=== PATIENT | female | born 1995 | race American Indian/Alaskan Native ===

== ENCOUNTER 2025-01-02 19:03 | Emergency (ER) | payer SELFPAY ==
--- NOTE | 2025-01-02 19:11 | ED_ITS ---
HPI - General Adult General Chief complaint: Skin/Abscess/Foreign Body Stated complaint: allergy break out all over Time Seen by Provider: 01/02/25 19:15 Source: patient, RN notes reviewed and old records reviewed Mode of arrival: ambulatory Limitations: no limitations History of Present Illness HPI narrative: 29-year-old female presents to the [facility] with a generalized rash all over. Has a sensitivity to fragrance. States that she just moved in with a family member 3 weeks ago. Rash started 2 weeks ago. Has been applying creams with no relief. Related Data Allergies Allergy/AdvReac Type Severity Reaction Status Date / Time Penicillins Allergy Unknown Unknown Verified 01/02/25 19:17 Review of Systems Review of Systems: All systems reviewed & are unremarkable except as noted in HPI and below Constitutional: Constitutional: Reports no additional constitutional complaints ENT: Reports system reviewed and no additional complaints, except as documented Cardiovascular: Cardiovascular: Reports no additional cardiovascular complaints, Denies chest pain and Denies dyspnea Respiratory: Respiratory: Reports no additional respiratory complaints, Denies chest congestion, Denies cough and Denies dyspnea Musculoskeletal: Musculoskeletal: Reports no additional musculoskeletal complaints Integumentary/Breasts: Skin/Breast: Reports as per HPI and Reports rash PMFSH Comments At the time of my signature, I reviewed and agree with the nursing past medical, surgical, social, and family history. There is no relevant family history pertinent to the patient complaint. Exam Const: General: cooperative, healthy appearing, comfortable, no acute distress, well developed, alert and well nourished Nutritional Appearance: well nourished and obese Orientation/consciousness: patient oriented x3 Limitations: no limitations HENMT: Head: normal to inspection Ears: hearing grossly normal bilaterally, external ears normal, TM's normal bilaterally and EAC's normal Mouth: Yes Normal oral and palatal mucosa present, Yes lip normal, Yes tongue normal and Yes moist mucous membranes abnormal Throat: posterior oropharynx normal, uvula midline and no uvular edema Eyes: General: appearance normal, both eyes and all related structures Alignment and Position: alignment normal Neck: Neck: normal visual inspection, full ROM, no lymphadenopathy and no meningeal signs Chest: Chest palpation & inspection: normal inspection of the chest Resp: Effort & Inspection: normal respiratory effort and able to speak in complete sentences Auscultation: clear to auscultation bilaterally, no crackles, no rales, no rhonchi and no wheezes Cardio: Rate: regular rate Skin: General skin exam: normal color and no rashes or lesions noted Rashes: rashes noted ( Generalized. Flat, pink) Neuro: General: patient oriented x3, gait normal, moves all extremities and no meningeal signs Cognition (Neuro): normal cognition Speech: normal speech Gait exam (Neuro): Normal gait present Extrem: General: normal to inspection, full ROM, capillary refill normal and normal gait Psych: Appearance: grossly normal and well kempt Mental Status: mental status grossly normal Speech and movement: Normal speech and movement present and Clear speech present Affect: normal affect Attitude: cooperative Course Course Level of Care: Express Care Visit Vital Signs Vital signs: Vital Signs Temperature 98.7 F 01/02/25 19:17 Pulse Rate 68 01/02/25 19:17 Respiratory Rate 20 01/02/25 19:17 Blood Pressure 123/85 01/02/25 19:17 Pulse Oximetry 100 01/02/25 19:17 Oxygen Delivery Room Air 01/02/25 19:17 Temperature 98.7 F 01/02/25 19:17 Pulse Rate 68 01/02/25 19:17 Respiratory Rate 20 01/02/25 19:17 Blood Pressure 123/85 01/02/25 19:17 Pulse Oximetry 100 01/02/25 19:17 Oxygen Delivery Room Air 01/02/25 19:17 Reviewed Medical Decision Making MDM Narrative Medical decision making narrative: Patient sitting comfortably in exam room. Nontoxic, vitals stable. Patient in no acute distress patient presents for a generalized rash for 2 weeks. Patient is appropriate for outpatient treatment with close follow-up Discharge instructions reviewed with patient, as well as provided in writing per nursing staff. The instructions also include specific and strict return/GO TO THE ER as well as f/u information. All questions have been answered, and the patient deny any further questions with discharge and discharge plan. Some parts of this dictation were generated by voice recognition software and may contain typographical and/or grammatical inaccuracies. Differential Diagnosis Differential Diagnosis: allergic reaction, rash, contact dermatitis Medical Records Medical records reviewed: Yes I reviewed the external patient's medical records. Vital Signs Vital Signs: Vital Signs Temperature 98.7 F 01/02/25 19:17 Pulse Rate 68 01/02/25 19:17 Respiratory Rate 20 01/02/25 19:17 Blood Pressure 123/85 01/02/25 19:17 Pulse Oximetry 100 01/02/25 19:17 Oxygen Delivery Room Air 01/02/25 19:17 Temperature 98.7 F 01/02/25 19:17 Pulse Rate 68 01/02/25 19:17 Respiratory Rate 20 01/02/25 19:17 Blood Pressure 123/85 01/02/25 19:17 Pulse Oximetry 100 01/02/25 19:17 Oxygen Delivery Room Air 01/02/25 19:17 Reviewed Lab Data Lab results reviewed: Yes I reviewed the patient's lab results. Labs: Reviewed Critical Care Time Critical Care Time Critical Care Time: No Discharge Plan Discharge Clinical Impression: Urticaria Patient Disposition: Home Condition: Stable Instructions: Antibiotic Form, Urticaria (ED) Additional Instructions: The most important part of your care is follow up with Primary care provider. Take Benadryl 25-50 mg every 8 hours for itching Take Zyrtec every day Take Pepcid 20mg daily for 7 days Take the steroids as prescribed Avoid hot showers, Take cool showers. Hot showers will make rashes worse Apply cool compresses every 2-3 hours for 15 minutes using a good moisturizing lotion such as Eucerin, Aveeno Go to the ER for new or worsening symptoms such as shortness of breath. Patient Language: Guyanese Prescriptions: New prednisone 20 mg tablet See Rx Instructions .Route .COMPLEX Qty: 18 0RF Rx Instructions: Take 60 mg daily for 3 days, 40 mg daily for 3 days, 20 mg daily for 3 days Follow-up/Referrals: PHYSICIAN,ELECTRIC BLANKET WIRER [Primary Care Provider, Internal Medicine] Stand Alone Forms: Work/School Release IP Time of Disposition: 19:22
[2025-01-02 19:17] VITALS: BP 123/85; PULSE 68; RESP 20; TEMP 37.1; O2SAT 100
== END 2025-01-02 19:27 | disposition home or self-care (01) ==
PROVIDERS: Emergency Provider Nurse Practitioner
DX: L50.9 Urticaria, unspecified (principal)
CPT/HCPCS: 99203; G0463

== ENCOUNTER 2025-01-28 19:47 | Emergency (ER) | payer SELFPAY ==
[2025-01-28 19:54] VITALS: BP 137/75; PULSE 73; RESP 18; TEMP 36.8; O2SAT 98
[2025-01-28 20:26] LABS: EDCOVIDSCREEN Negative (Negative); EDINFLUASCREEN Negative (Negative); EDINFLUBSCREEN Negative (Negative); EDSTREPNEGPOS1 Negative (Negative)
--- NOTE | 2025-01-28 20:26 | ED.URI ---
HPI - URI/Sore Throat General Chief Complaint: Upper Respiratory Infection Stated Complaint: throat/sinus pressure/blister on right ankle Time Seen by Provider: 01/28/25 19:55 Source: patient and RN notes reviewed Mode of arrival: ambulatory Limitations: no limitations History of Present Illness HPI Narrative: 29 Year old female patient presents to the [facility] complaining of upper respiratory symptoms for 4 days. Patient also reports having a blister on the back of her right heel from her work boot. Patient reports sinus pressure, sore throat,, cough, congestion. Patient denies any fevers, body aches chills, nausea vomiting, diarrhea, chest pain, difficulty breathing, any other upper respiratory symptoms, or any other symptoms. Patient reports her blisters painful denies any redness, swelling, or drainage. Patient has not tried anything to help with the blister. Patient denies any significant past medical history. Related Data Home Medications ?Medication ?Instructions ?Recorded ?Confirmed ?Last Taken ?Type No Home Medications 01/28/25 01/28/25 Unknown History Allergies Allergy/AdvReac Type Severity Reaction Status Date / Time Penicillins Allergy Unknown Unknown Verified 01/28/25 19:49 Review of Systems Review of Systems: CONSTITUTIONAL: Denies fever, chills, or sweats. EYES: Denies visual changes, redness, or discharge. ENT: Denies rhinorrhea, sore throat, or otalgia. Positive for congestion, sore throat, sinus pressure CARDIOVASCULAR: Denies chest pain, palpitations, or edema. RESPIRATORY: Positive for cough. Negative for wheezing or Dyspnea. GASTROINTESTINAL: Denies abdominal pain, nausea, vomiting, or diarrhea. GENITOURINARY: Denies dysuria or hematuria. SKIN: Denies rash or itching. Positive for wound. MUSCULOSKELETAL: Denies back pain, joint pain, or myalgia. NEUROLOGIC: Denies headache, numbness, or weakness. PSYCHIATRIC: Denies anxiety or depression. All other systems reviewed are negative, except as documented in HPI. PMFSH Comments At the time of my signature, I reviewed and agree with the nursing past medical, surgical, social, and family history. There is no relevant family history pertinent to the patient complaint. Exam Narrative: GENERAL: This is a well-nourished, well-developed adult, in no apparent distress. They are non ill-appearing, nontoxic appearing. HEAD: normocephalic, atraumatic. EYES: Sclera clear/white. Conjunctiva normal. Vision is grossly intact. Extraocular movements intact EARS: External ears normal, auditory canals clear and without drainage, TMs normal without perforation. Hearing grossly intact. NOSE: External nose normal with no obvious nasal discharge, nasal turbinates erythematous, no rhinorrhea. THROAT: Mucous membranes moist, posterior pharynx erythematous. No exudate. Uvula midline. Postnasal drip present. NECK: Neck supple, non-tender without lymphadenopathy, masses or thyromegaly. CARDIOVASCULAR: Regular rate and rhythm without murmurs, gallops, or rubs. RESPIRATORY: Clear to auscultation. Breath sounds equal bilaterally. No wheezes, rales, or rhonchi. SKIN: Right foot: Small blister to the back of the patient's right heel below the Achilles. It is measuring approximately less than 1 cm in diameter. Blister intact. No surrounding erythema, swelling, or drainage. Very fluctuance, no induration. NEURO: awake, alert, and oriented to person, place and time. There were no obvious focal neurologic abnormalities. EXTREMITIES: No joint tenderness, effusion, or edema noted. BACK: Nontender without deformity. Course Course Level of Care: Express Care Visit Vital Signs Vital signs: Vital Signs Temperature 98.2 F 01/28/25 19:54 Pulse Rate 73 01/28/25 19:54 Respiratory Rate 18 01/28/25 19:54 Blood Pressure 137/75 01/28/25 19:54 Pulse Oximetry 98 01/28/25 19:54 Oxygen Delivery Room Air 01/28/25 19:54 Temperature 98.2 F 01/28/25 19:54 Pulse Rate 73 01/28/25 19:54 Respiratory Rate 18 01/28/25 19:54 Blood Pressure 137/75 01/28/25 19:54 Pulse Oximetry 98 01/28/25 19:54 Oxygen Delivery Room Air 01/28/25 19:54 [facility] Narrative Medical decision making narrative: Rapid COVID, flu, strep were negative. A throat culture is pending. Symptoms likely viral in etiology. Patient has very mild blister to the back heel of right foot. Blister intact. No evidence of infection to the blister. Patient is not trying to help with the blister. Advised patient to wear a barrier such as a Band-Aid her extra padding to help with the blister. Discussed supportive care. Patient is nontoxic appearing, no apparent distress, vital signs hemodynamically stable. Patient is afebrile. Patient resting comfortably in the room. Discussed physical exam findings. Advised supportive measures and signs/symptoms to go to the ER. Pt is appropriate for outpt treatment and f/u. Patient says she is on a unable to work due to her blister, she reports due to the pain. She has not tried anything to help with the blister. Emphasized importance of a barrier to the blister and good fitting shoes or she may need to consider changing shoes for work. Patient is demanding a work note for at least 6 days for the blister. Patient is in form she can have 1 day off of work for the blister as it is not medically necessary to be a for 6 days for her blister or not able to fulfill the request. Patient continued to argue with provider in the room about the work note continue to demand 6 days off work. Provider sternly emphasized to the patient the request is denied and she can have 1 day of work, the conversation was ended this point by provider as the conversation was futile and at a standstill. As provider is leaving the room the patient followed aggressively to the nurse's station and began recording with her cellphone at nurses station pain belligerent, intimidating, and aggressive about her denial and about her care, demanding to speak to superior. Nursing staff requesting patient return to room, or to leave the property due to her behavior as she has already been evaluated and can leave with or without her discharge instructions. Patient returned to room a and awaited discharge instructions from nursing staff. Differential Diagnosis Differential Diagnosis: Upper respiratory infection, viral illness, sinusitis, pharyngitis, blister, cellulitis Lab Data [facility] Lab Attestation statement: I personally reviewed the patient's lab results. Labs: Lab Results 01/28/25 Range/Units 20:24 POC Influenza A Ag Negative (Negative) POC Influenza B Ag Negative (Negative) POC SARS CoV-2 Ag Negative (Negative) POC Grp A Strep Screen Negative (Negative) Critical Care Time Critical Care Time Critical Care Time: No Discharge Plan Discharge Clinical Impression: Upper respiratory infection, Blister Patient Disposition: Home Condition: Stable Instructions: Antibiotic Form, Upper Respiratory Infection (ED), Blister (ED) Additional Instructions: Your rapid strep swab, COVID, flu was negative today at [facility]. You will be notified in a few days if the culture comes back positive for strep, and appropriate antibiotics will be called in for you at that time. Your symptoms are likely due to a viral illness, which is not treated with antibiotics. Viral symptoms can be present for up to 10-14 days. Take Tylenol or Motrin as needed for fever or pain. Follow instructions on the bottle. Rest and stay hydrated. Follow up with your PCP in 3-5 days days if symptoms are not improving. Go to the ER immediately if you developed chest pain, difficulty breathing, vomiting, or difficulty swallowing. Keep the blister intact. Apply your to the blisters such as a Band-Aid. If the blister ruptures apply antibiotic ointment and keep it covered. Wear good supportive shoes. If it ruptures wash with mild soap and water. Developed worsening redness, pain, fevers, drainage or any serious concerns go to the ER immediately. Patient Language: [place]ian Prescriptions: No Action No Home Medications Follow-up/Referrals: PHYSICIAN,TRANSVERSE ABDOMINAL MUSCLE NURSE [Primary Care Provider, Internal Medicine] Stand Alone Forms: Work/School Release IP Time of Disposition: 20:10
== END 2025-01-28 20:22 | disposition home or self-care (01) ==
DX: J06.9 Acute upper respiratory infection, unspecified (principal); S90.821A Blister (nonthermal), right foot, initial encounter; X58.XXXA Exposure to other specified factors, initial encounter; Z20.822 Contact with and (suspected) exposure to COVID-19
CPT/HCPCS: 87081; 87426; 87804; 87880; 99213; G0463